=== PATIENT | female | born 2005 | race Caucasian/White ===

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

== ENCOUNTER 2025-06-25 13:42 | Emergency (ER) | payer OTHER ==
[~2025-06-25] VITALS: Ht 162.6 cm; Wt 61.4 kg
[~2025-06-25 13:42] MED LIST: DIPH-1243 PO
[2025-06-25 14:31] VITALS: TEMP 99.7
[2025-06-25 15:07] LABS: COVID AG,FIA SOURCE NASAL SWAB
[2025-06-25 15:29] LABS: SARS-COV2 (COVID) ANTIGEN,FIA Negative (Negative)
[2025-06-25 15:31] LABS: INFLUENZA TYPE A NEGATIVE FOR TYPE A (NEGATIVE); INFLUENZA TYPE B NEGATIVE FOR TYPE B (NEGATIVE)
[2025-06-25 16:16] LABS: PLATELET COUNT (AUTO) 223 K/uL (150-450); RED BLOOD CELL COUNT(AUTO) 4.69 MIL/uL (4.00-5.20); RED CELL DISTRIBUTION WIDTH 13.3 % (11.5-14.5); WHITE BLOOD COUNT (AUTO) 6.0 K/uL (4.5-11.0)
[2025-06-25 16:22] LABS: CALCIUM, TOTAL 8.8 mg/dL (8.8-10.5); CREATININE 0.60 mg/dL (0.60-1.30); GLOMERULAR FILTR. RATE CALC > 60 mL/min (>60); GLUCOSE,RANDOM 88 mg/dL (70-110); SODIUM SERUM 135 mmol/L (136-145); UREA NITROGEN, BLOOD 7 mg/dL (7-18)
[2025-06-25 16:41] LABS: APPEARANCE,URINE CLEAR (CLEAR); GLUCOSE, URINE (UA) NEGATIVE (NEGATIVE); LEUKOCYTE ESTERASE ,URINE NEGATIVE (NEGATIVE); NITRATE,URINE NEGATIVE (NEGATIVE); OCCULT BLOOD,URINE NEGATIVE (NEGATIVE); SPECIFIC GRAVITIY, URINE 1.011 (1.003-1.030)
[2025-06-25] MEDS ORDERED: IBUP-1492 PO (17:02)
[2025-06-25] MEDS ORDERED: ACET-2247 PO (17:02)
[2025-06-25 17:06] VITALS: BP 126/70; PULSE 98; RESP 16; O2SAT 99
[2025-06-25] MEDS: ACETAMINOPHEN 500 MG TABLET PO ONE (17:36)
[2025-06-25 17:50] LABS: ASPARTATE AMINOTRANSFERASE 19 U/L (15-37); HCG,QUANTITATIVE < 1 mIU/mL (0-6); TOTAL PROTEIN, SERUM 7.3 g/dL (6.4-8.2)
== END 2025-06-25 19:05 | disposition home or self-care (01) ==
LOC: EMS 14:22
DX: K29.70 Gastritis, unspecified, without bleeding (principal); R42 Dizziness and giddiness; R53.81 Other malaise; R10.2 Pelvic and perineal pain; Z20.822 Contact with and (suspected) exposure to COVID-19
CPT/HCPCS: 80048; 80076; 81003; 83690; 84702; 85025; 87804; 99283